=== PATIENT | female | born 1965 | race Caucasian/White ===

== ENCOUNTER → 2016-10-28 | Day surgery (SDC) | payer OTHER ==
[~2016-10-28] MED LIST: ALLERGY RELIEF10 M1 PO; CELEXA20 MG PO; LEVOTHYROXINE100 MCG PO; LORTAB 7.5-5001 TAB PO; PHENERGAN PO; SIMVASTATIN20 MG PO; SYNTHROID125 PO
--- NOTE | ~2016-10-28 | OR ---
Unit #: [id number] #: [id number] Patient: JOSE ARGUETA [id number] [address] [address] [id number] MR#: [id number] NAME: JOSE ARGUETA. ROOM: Date of Procedure: 10/28/2016 Admission Date: 10/28/2016 Surgeon: Luiz Otoole M.D. : 1965 Attending Physician: Luiz Otoole M.D. Primary Care Physician: Buddy Vora Jr., M.D. OPERATIVE REPORT PROCEDURE PERFORMED Colonoscopy with snare polypectomy. INDICATIONS FOR PROCEDURE Average risk for colorectal cancer. MEDICATIONS Monitored anesthesia. POSTOPERATIVE FINDINGS 1. Two polyps, sigmoid colon, 4 to 6 mm each, snared and sent for histopathology. 2. Rest of the colon exam to cecum was normal. Prep was good. PLAN Repeat colonoscopy in 5 years if adenomatous. DESCRIPTION OF PROCEDURE The patient was explained of the procedure, risks, and benefits along with the risks and benefits of anesthesia. She was brought to the endoscopy room. Propofol anesthesia was given. Rectal exam was done, which was normal. Colonoscope was lubricated, passed up the rectum, and advanced under direct vision all the way to the cecum. Cecum was identified by ileocecal valve and appendiceal orifice. I then started to pull the scope out carefully looking. Two polyps seen in sigmoid colon were snared and sent for histopathology. Rest of the exam was normal. I retroflexed in the rectum, small hemorrhoids were noted. Gently, the scope was pulled out. She tolerated it well. Dictated by... Nikole Huitron/cee TD: 10/28/2016 20:16 JOB #: [id number] Unit #: [id number] #: [id number] Patient: JOSE ARGUETA OPERATIVE REPORT Page 1 of 1 X Luiz Otoole MD PROCEDURE OPERATIVE NOTE
== END | disposition home or self-care (01) ==
LOC: COPS 10-03 13:00
DX: Z12.11 Encounter for screening for malignant neoplasm of colon (principal); K63.5 Polyp of colon; K64.9 Unspecified hemorrhoids; E03.9 Hypothyroidism, unspecified; K21.9 Gastro-esophageal reflux disease without esophagitis; F17.200 Nicotine dependence, unspecified, uncomplicated; Z88.8 Allergy status to other drugs, medicaments and biological substances; Z98.51 Tubal ligation status; Z90.49 Acquired absence of other specified parts of digestive tract; Z98.890 Other specified postprocedural states; Z79.899 Other long term (current) drug therapy
CPT/HCPCS: 88305; J2250